=== PATIENT | male | born 1955 | race Caucasian/White ===

== ENCOUNTER → 2019-01-25 | Outpatient (REF) | payer OTHER | LOC: M LAB LCGH 15:06 | PROVIDERS: ATTEND Surgery | DX: D12.4 Benign neoplasm of descending colon (principal); D12.5 Benign neoplasm of sigmoid colon ==

== ENCOUNTER → 2023-04-29 | Outpatient (CLI) | payer BC, MEDICARE ==
[~2023-04-29] MED LIST: E-Z-GAS II EFFERVESCENT PACKET (SODIUM BICARB./CITRIC ACID/SIMETHICONE) As Ordered ONE; E-Z-HD 98% w/w 340GM SUSP BTL As Ordered ONE; E-Z-PAQUE 96% w/w SUSP 176GM BTL As Ordered ONE
== END ==
LOC: M RAD 10:12
PROVIDERS: ATTEND Internal Medicine Gastroenterology
DX: K22.4 Dyskinesia of esophagus (principal); K44.9 Diaphragmatic hernia without obstruction or gangrene

== ENCOUNTER 2023-05-12 11:45 | Day surgery (SDC) | payer BC ==
[~2023-05-12] VITALS: Ht 182.9 cm; Wt 96.8 kg
[~2023-05-12 11:45] MED LIST changes: +ATOR1TAB21 PO; -E-Z-GAS II EFFERVESCENT PACKET (SODIUM BICARB./CITRIC ACID/SIMETHICONE) As Ordered ONE; -E-Z-HD 98% w/w 340GM SUSP BTL As Ordered ONE; -E-Z-PAQUE 96% w/w SUSP 176GM BTL As Ordered ONE; +OMEP-173 PO; +OXYB10TA23 PO; +TAMS1CAP17 PO
[2023-05-12] MEDS: NS 1,000 ML IV ONE (12:06)
[2023-05-12] MEDS ORDERED: fentaNYL 100 MCG/2 ML INJECTION As Ordered ONE (12:41)
[2023-05-12] MEDS ORDERED: propofoL 200 MG/20 ML VIAL As Ordered ONE (12:41)
[2023-05-12] MEDS ORDERED: LIDOCAINE 2% 100MG/5ML SDV (FOR ANES.) As Ordered ONE (12:42)
[2023-05-12 13:03] VITALS: TEMP 97.7
[2023-05-12 13:19] VITALS: BP 174/98; O2SAT 98
== END 2023-05-12 13:27 | disposition home or self-care (01) ==
LOC: M OPP 11:45
PROVIDERS: ATTEND Internal Medicine Gastroenterology
DX: K22.2 Esophageal obstruction (principal); K22.89 Other specified disease of esophagus; R93.3 Abnormal findings on diagnostic imaging of other parts of digestive tract; R13.10 Dysphagia, unspecified; Z79.02 Long term (current) use of antithrombotics/antiplatelets; Z79.899 Other long term (current) drug therapy
CPT/HCPCS: 43239; 43249; 88305; J3010